=== PATIENT | male | born 1985 | race Caucasian/White ===

== ENCOUNTER 2020-08-31 07:15 | Day surgery (SDC) | payer BC, SELFPAY ==
[~2020-08-31] VITALS: Ht 165.1 cm; Wt 72.1 kg
[~2020-08-31 07:15] MED LIST: CEFAZOLIN SOD 1 GM in D5W 50 ML IV ONE
[2020-08-31] MEDS ORDERED: METOCLOPRAMIDE HCL 10 MG/2 ML VIAL IVP PRN (08:45)
[2020-08-31] MEDS ORDERED: fentaNYL CITRATE/PF 100 MCG/2 ML AMP IVP PRN ×2 (08:45)
[2020-08-31] MEDS ORDERED: ONDANSETRON HCL 4 MG/2 ML VIAL IVP PRN (08:45)
[2020-08-31] MEDS ORDERED: SEVOFLURANE 15 MIN GAS INH ONE (09:20)
[2020-08-31] MEDS ORDERED: GLYCOPYRROLATE 0.2 MG/ML VIAL IJ ONE (09:20)
[2020-08-31] MEDS ORDERED: ROCURONIUM BROMIDE 10 MG/ML (ZEMURON) IV ONE (09:20)
[2020-08-31] MEDS ORDERED: NS IRRIG SOLN 1000 ML IR ONE (09:20)
[2020-08-31] MEDS ORDERED: ONDANSETRON HCL 4 MG/2 ML VIAL IVP ONE (09:20)
[2020-08-31] MEDS ORDERED: fentaNYL CITRATE/PF 100 MCG/2 ML AMP IVP ONE (09:20)
[2020-08-31] MEDS ORDERED: PROPOFOL 200MG/ 20ML VIAL (DIPRIVAN) IV ONE (09:20)
[2020-08-31] MEDS ORDERED: MIDAZOLAM HCL 5 MG/5 ML VIAL IVP ONE (09:20)
[2020-08-31] MEDS ORDERED: LR 1,000 ML IV.SOLN IV ONE (09:20)
[2020-08-31] MEDS: fentaNYL CITRATE/PF 100 MCG/2 ML AMP ONE ×2 (11:18→11:23)
[2020-08-31] MEDS ORDERED: HYDROmorphone 1 MG/ML INJ. CARTRIDGE IVP PRN (12:00)
[2020-08-31] MEDS ORDERED: HYDROcodone/ACETAMIN 5-325 MG TAB (NORCO/ VICODIN) PO PRN ×2 (12:00)
[2020-08-31] MEDS ORDERED: D5/0.45 NS 1,000 ML IV SCH (12:00)
[2020-08-31] MEDS ORDERED: HYDROcodone/ACETAMIN 5-325 MG TAB (NORCO/ VICODIN) ONE (13:16)
[2020-08-31] MEDS ORDERED: ONDANSETRON HCL 4 MG/2 ML VIAL ONE (14:30)
[2020-08-31 18:14] VITALS: BP_SYST 117
== END 2020-08-31 15:25 | disposition home or self-care (01) ==
LOC: SDS 07:15 → SMU 07:15 → SDS 15:25
PROVIDERS: ATTEND Colon & Rectal Surgery
DX: K80.12 Calculus of gallbladder with acute and chronic cholecystitis without obstruction (principal); F32.9 Major depressive disorder, single episode, unspecified; E78.5 Hyperlipidemia, unspecified; Z20.822 Contact with and (suspected) exposure to COVID-19; Z79.899 Other long term (current) drug therapy
CPT/HCPCS: 47563; 74300; 76000; 88304; C1727; C1758; J0690; J2405; J3010; J7060; Q9967; U0003; U0005; J2250; J2704; J3490; J7120